=== PATIENT | male | born 1960 | race Caucasian/White ===

== ENCOUNTER → 2019-05-31 | Outpatient (CLI) | payer OTHER ==
[~2019-05-31] MED LIST: AMOXICILLIN500 MG PO; ANTIVERT 25MG25 MG PO; FLEXERIL10 MG PO; PERCOCET 325 MG1 TA2 PO; PERCODAN TABL1 UDTAB PO; PRINIVIL20 MG; TUSS PO; ZOCOR 20MG20 MG
== END ==
LOC: COL.RAD 12:25
DX: R51 Headache (principal)

== ENCOUNTER → 2020-11-04 | Outpatient (CLI) | payer OTHER | LOC: COL.RAD 11:22 | DX: G43.109 Migraine with aura, not intractable, without status migrainosus (principal); M47.812 Spondylosis without myelopathy or radiculopathy, cervical region; M48.061 Spinal stenosis, lumbar region without neurogenic claudication ==